=== PATIENT | female | born 1990 | race Caucasian/White ===

== ENCOUNTER → 2022-03-25 17:14 | Outpatient (BNVA) | payer OTHER, SELFPAY | PROVIDERS: Visit Provider Registered Nurse Neonatal Intensive Care | DX: Z20.2 Contact with and (suspected) exposure to infections with a predominantly sexual mode of transmission (principal) | CPT/HCPCS: 81003; 87491; 87591; 87661 ==

== ENCOUNTER 2024-10-22 19:00 | Inpatient (IN) | payer MEDICAID, SELFPAY ==
[2024-10-22] VITALS (64 sets, daily range): BP systolic 134–190; BP diastolic 71–104; PULSE 63–102; BMI 33.7
[2024-10-22 10:09] LABS: Basophils % 0.3 %; Eosinophils # 0.1 10^3/uL (0.0-0.8); Eosinophils % 0.5 %; Lymphocytes # 1.8 10^3/uL (0.8-4.8); Lymphocytes % 19.4 %; Mean Corpuscular HGB Conc 33.5 g/dL (30-55); Mean Corpuscular Hemoglobin 27.7 pg (27-33); Mean Corpuscular Volume 82.6 fl (85-98); Monocytes # 0.5 10^3/uL (0.2-0.9); Monocytes % 5.2 %; Neutrophils # 6.81 10^3/uL (1.8-7.7); Neutrophils % 73.9 %; Nucleated Red Blood Cells % 0 %; Platelet Count 228 10^3/cmm (157-399); Red Blood Count 4.84 10^6/uL (3.85-5.65); Red Cell Distribution Width 14.5 % (12.1-15.1); White Blood Count 9.22 10^3/uL (3.29-11.43)
[2024-10-22 10:24] LABS: Alanine Aminotransferase 15 U/L (0-33); Albumin Level 3.3 g/dL (3.5-5.2); Alkaline Phosphatase 673 U/L (35-105); Anion Gap 16.3 (5-19); Aspartate Amino Transferase 17 U/L (0-32); Bacteria Urine 3+ /hpf; Blood Urea Nitrogen 12 mg/dL (6-20); Calcium 8.8 mg/dL (8.5-10.5); Carbon Dioxide 19 mmol/L (22-29); Chloride 105 mmol/L (98-107); Globulin 2.7 g/dL (1.3-4.6); Glomerular Filtration Rate 113.1 mL/min (90-130); Glucose 121 mg/dL (65-115); Hyaline Casts Urine 11.16 /lpf; Osmolality Calculated 283 mOsm/kg (285-295); Potassium 4.3 mmol/L (3.5-5.1); Sodium 136 mmol/L (136-145); Total Bilirubin 0.3 mg/dL (0.15-1.2); Uric Acid 6.7 mg/dL (2.4-5.7)
[2024-10-22 10:28] LABS: Urine Creatinine 350 mg/dL (28-217)
[2024-10-22 10:29] LABS: UPRO/UCREAT Ratio 0.54 mg/mg CR; Urine Protein Random 188 mg/dL
[2024-10-22 10:39] LABS: Urine Color Dark Yellow (Yellow)
[2024-10-22 10:40] LABS: Bilirubin Urine 1+ (Negative); Blood Urine Neg (Negative); Glucose Urine UA Norm (Normal); Ketones Urine Negative (Negative); Leukocyte Esterase Urine Trace (Negative); Nitrate Urine Negative (Negative); Protein Urine 2+ (Negative); Specific Gravity, Urine 1.025 (1.005-1.030); UA Slide Review UA Slide Review Perf; Urine Appearance Slightly Cloudy (CLEAR); Urobilinogen Urine Norm (Negative); pH Urine 5 (5-7)
[2024-10-22 10:42] LABS: Add Urine Culture? Yes
[2024-10-22] MEDS: labetalol 5 mg/mL SDV 20mL 20 MG IVP (13:12)
[2024-10-22] MEDS: labetalol 5 mg/mL SDV 20mL 40 MG IVP (13:53)
[2024-10-22] MEDS: miSOPROStol 100 mcg tablet 25 MCG VAGINAL ×3 (14:06→22:32)
[2024-10-22] MEDS: labetalol 5 mg/mL SDV 20mL 80 MG IVP (18:40)
--- NOTE | 2024-10-22 19:16 | ANES.PREANE2 ---
Pre-Anesthetic Assessment Height/Weight: Height 1.78 m Weight 106.821 kg Pulse BP O2 Del Method 95 168/92 Room Air 10/22/24 18:59 10/22/24 18:59 10/22/24 12:06 Preop Diagnosis: intra-uterine labor epidural Familial anesthetic complications: none Was Beta Fanta taken within 24 hours: N/A Was Clonidine taken within 24 hours: N/A Social No alcohol and No tobacco Exam alert and oriented x 3 Airway Mallampati: Class II Dentition: full History/ROS No significant history except as noted Pulmonary None reported CV/HEM Hypertension induction for gHTN/ pre- E None reported Hepatic None reported GI None reported Metabolic None reported Musc/skel None reported Neuropsych None reported Anesthetic Plan ASA status: 2 Anesthesia: Anesthesia Evaluation and Regional (specify below) (epidural ) Medications/Allergies Home Medications ?Medication ?Instructions ?Recorded ?Confirmed ?Last Taken ?Type [id number] 1 mg 1 tab PO DAILY 10/22/24 10/22/24 10/21/24 History tablet Allergies Allergy/AdvReac Type Severity Reaction Status Date / Time Sulfa (Sulfonamide Allergy Intermediate ADR-Blurry Verified 03/31/22 17:49 Antibiotics) Vision Current Medications Generic Name Dose Route Start Last Admin Trade Name Freq PRN Reason Stop Dose Admin Labetalol HCl 20 mg 10/22/24 12:16 10/22/24 13:12 Labetalol 5 Mg/Ml Sdv 20ml IVP 20 mg PRN PRN Administration HYPERTENSION Protocol Labetalol HCl 40 mg 10/22/24 12:16 10/22/24 13:53 Labetalol 5 Mg/Ml Sdv 20ml IVP 40 mg PRN PRN Administration HYPERTENSION Protocol Labetalol HCl 80 mg 10/22/24 12:16 10/22/24 18:40 Labetalol 5 Mg/Ml Sdv 20ml IVP 80 mg PRN PRN Administration HYPERTENSION Protocol Misoprostol 25 mcg 10/22/24 13:30 10/22/24 18:11 Misoprostol 100 Mcg Tablet VAGINAL 10/22/24 21:31 25 mcg Q4H SHAI Administration PFSH Anesthesia Social History Smoking and tobacco/nicotine status: current every day tobacco/nicotine user Female Reproductive History : 1 Data Anesthesia 10/22/24 09:40 10/22/24 09:40 Short CBC 10/22/24 Range/Units 09:40 WBC 9.22 (3.29-11.43) 10^3/uL Hgb 13.40 (11.27-16.99) g/dL Hct 40.0 (36-47) % MCV 82.6 L (85-98) fl Plt Count 228 (157-399) 10^3/cmm Neut % (Auto) 73.9 % Neut # (Auto) 6.81 (1.8-7.7) 10^3/uL BMP 10/22/24 09:40 Sodium 136 Potassium 4.3 Chloride 105 Carbon Dioxide 19 L BUN 12 Creatinine 0.6 Glucose 121 H Calcium 8.8 Liver Function 10/22/24 Range/Units 09:40 Total Bilirubin 0.3 (0.15-1.2) mg/dL AST 17 (0-32) U/L ALT 15 (0-33) U/L Alkaline Phosphatase 673 H (35-105) U/L Albumin 3.3 L (3.5-5.2) g/dL Urine 10/22/24 Range/Units 09:40 Urine Color Dark yellow A (Yellow) Urine Appearance Slightly cloudy (CLEAR) Urine pH 5 (5-7) Ur Specific [place] 1.025 (1.005-1.030) Urine Protein 2+ A (Negative) Urine Glucose (UA) Norm (Normal) Urine Ketones Negative (Negative) Urine Nitrate Negative (Negative) Urine Bilirubin 1+ H (Negative) Ur Leukocyte Esterase Trace A (Negative) Urine RBC 11-20 H (0-2) /hpf Urine WBC 11-20 H (0-5) /hpf Blood Bank 10/22/24 12:47 Blood Type A Positive Rho(D) Type Rh positive Antibody Screen Negative Cardiac Studies: No Data to Display
[2024-10-22] MEDS: NIFEdipine ER (24 hr) 30 mg Tablet PO (19:36)
[2024-10-22] MEDS: magnesium sulfate premix 4 GM/100 ML PREMIX IV (20:30)
[2024-10-22] MEDS: magnesium sulfate premix 20 GM/500 ML BAG IV (20:52)
[2024-10-22] MEDS: ondansetron 2 mg/ML SDV 2 mL 4 MG IVP (23:46)
[2024-10-23] VITALS (55 sets, daily range): BP systolic 136–199; BP diastolic 64–103; PULSE 81–116; TEMP 36.8; O2SAT 98–100
[2024-10-23] MEDS: ampicillin 2,000 MG in sodium chloride 0.9% (plus) 50 ML 100 MG IV (00:27)
[2024-10-23] MEDS: labetalol 5 mg/mL SDV 20mL 40 MG IVP (00:28)
[2024-10-23] MEDS: oxytocin 30 UNIT/500 ML BAG 600 UNIT IV (01:27)
[2024-10-23] MEDS: lidocaine 2% INJ 20 mL INJECTION (01:30)
[2024-10-23] MEDS: dextrose 5%-lactated ringers 1,000 ML 125 ML IV (01:41)
--- NOTE | 2024-10-23 02:22 | P.PCNOB_ITS ---
Delivery Note: Date of delivery: October 23, 2024 Pre-delivery diagnoses: 1. 34-year-old 1 at 36 weeks an d 5 days 2. Preeclampsia Post-delivery diagnoses: Same Status post vacuum-assisted vaginal delivery Procedure: Vacuum-assisted vaginal delivery Delivering Physician: Pj Barry Estimated blood loss (mL): 150 Post Delivery Diagnoses: Preeclampsia: Qualifiers: Trimester: third trimester Qualified Code(s): O14.93 - Unspecified pre- eclampsia, third trimester Pre-Delivery Course: The patient presented to the OB department for evaluation due to having an elevated blood pressure during her routine office visit. As a part of her preeclamptic workup she was found to have an elevated protein creatinine ratio as well as multiple severe blood pressures. As result she was induced with Cytotec 25 mcg x 3. She had spontaneous rupture membranes. She had multiple episodes of elevated blood pressures. They were treated with both Procardia XL as well as labetalol. She was also placed on magnesium with a loading dose of 4 g and a maintenance dose of 2 g. Delivery: DELIVERY: The baby began having persistent decelerations. Multiple position changes were attempted. Despite that she had a deep decelerations where her heart rates were in the 70s and 60s. I was contacted and quickly came to the hospital. Upon arrival she was a +2+3 station. Babies heart tones were still down. As result I applied a Kiwi vacuum and the baby was delivered with 1 contraction. She delivered a male with a weight of 4 pounds 5 ounces with Apgars of 7, 9. The baby was delivered from the LADONNA position. The baby's mouth and nose were suctioned at the site of the perineum. The baby was then completely delivered and placed on the mother's abdomen. The cord was then clamped and cut. There was no nuchal cord. There was no meconium. The placenta and 3 vessel cord were delivered intact shortly thereafter. The perineum and vaginal vault were carefully examined. A first-degree laceration extending onto the left labia minora and majora was noted. It continued to have bleeding. As result 1% lidocaine was used to anesthetize the area. 3-0 Vicryl was then used to repair the stitch in usual fashion. Hemostasis was noted.. Both the mother and the baby were in stable condition. Post-Delivery Status: Good History History History 1 Term Miscarriages/Ectopic Living Children A&P Assessment and plan (1) 36 weeks gestation of : The patient will be continued on magnesium. Will also continue to monitor her blood pressures. We will hold off on ibuprofen until we see better control of her blood pressure. Otherwise, I am hopeful she can have routine care. (2) Preeclampsia: Qualifiers: Trimester: third trimester Qualified Code(s): O14.93 - Unspecified pre- eclampsia, third trimester (3) Vacuum-assisted vaginal delivery: PDMP PDMP Reviewed: Not Reviewed Coding Level of Care Code Acute Code for Chg Fwd Diagnoses 36 weeks gestation of Z3A.36 Pre-eclampsia in third trimester O14.93 Trimester: third trimester Vacuum-assisted vaginal delivery Z37.9
--- NOTE | 2024-10-23 07:17 | PC.NURSE ---
at approximately 0035, this RN came to bedside and performed multiple position changes along with applying oxygen at 0059. Jaleel mckeon T.Clemments, came to bedside to assist with position changes and getting PT into hands and knees. MD was called to notify him of the Pt being complete, and then called back to notify him that patent was involuntarily pushing and that baby was not recovering from the current deceleration. MD arrived to bedside applied vacuum and baby was born at 0124.
[2024-10-23] MEDS: magnesium sulfate premix 20 GM/500 ML BAG IV ×2 (07:37→17:55)
[2024-10-23] MEDS: docusate sodium 100 mg Capsule PO ×2 (08:48→17:55)
[2024-10-23] MEDS: PRENATAL VIT NO.130/IRON/FOLIC 1 EACH TABLET PO (08:48)
[2024-10-23] MEDS: acetaminophen 500 mg Tablet 1000 MG PO ×3 (09:05→21:42)
[2024-10-23 11:48] LABS: Magnesium Level (OB Only) 4.7 mg/dL (5.0-7.5)
[2024-10-23 14:21] LABS: Hematocrit 38.2 % (36-47); Mean Corpuscular HGB Conc 33.8 g/dL (30-55); Mean Corpuscular Hemoglobin 27.7 pg (27-33); Mean Platelet Volume 10.8 fL (7.4-10.4); Platelet Count 223 10^3/cmm (157-399); Red Blood Count 4.66 10^6/uL (3.85-5.65); Red Cell Distribution Width 14.6 % (12.1-15.1); White Blood Count 13.49 10^3/uL (3.29-11.43)
[2024-10-23] MEDS: lactated ringers 1,000 ML 75 ML (19:05)
[2024-10-23] MEDS: NIFEdipine ER (24 hr) 30 mg Tablet 60 MG PO (22:10)
[2024-10-24] VITALS (17 sets, daily range): BP systolic 134–177; BP diastolic 80–100; PULSE 75–95; TEMP 36.4–36.7
[2024-10-24] MEDS: PRENATAL VIT NO.130/IRON/FOLIC 1 EACH TABLET PO (08:48)
[2024-10-24] MEDS: docusate sodium 100 mg Capsule PO ×2 (08:48→17:44)
[2024-10-24] MEDS: acetaminophen 500 mg Tablet 1000 MG PO ×2 (11:29→17:44)
--- NOTE | 2024-10-24 17:08 | P.PN_ITS ---
STRAWBERRY GROWER Subjective 2 Subjective: Interval history: The patient is doing well. Her blood pressures have been improving. She has been maintained on Procardia XL 60 mg p.o. daily. She has been diuresing. Her swelling is improving. She has felt pretty good overall. Breast-feeding has been going pretty well. Labor: Station: 0 Amniotic Membrane Status: Ruptured Monitor Mode: Palpation Contraction Pattern: Irregular Status: Category II Vitals/I&O/Wt Last Vital Signs Temp 97.5 F L 10/24/24 16:02 Pulse 83 10/24/24 16:02 BP 134/100 10/24/24 16:02 Pulse Ox 100 10/23/24 01:29 O2 Del Method Room Air 10/22/24 12:06 10/24/24 10/24/24 10/24/24 06:59 14:59 22:59 Intake Total 439.167 / 939.167 Output Total 1795 / 8015 Balance -1355.833 / -7075.833 Physical Exam 2 Narrative: The patient is alert. She appears comfortable. Her heart has a regular rate and rhythm with no murmurs appreciated. Lungs are clear to auscultation bilaterally. Her fundus is firm and below the umbilicus. Urinary Catheter Management: [place]: Cath Placed During This Visit: yes, but has since been removed by the nurse Reason for Continuing Indwelling Catheter: Decision to DC Catheter Urinary Catheter Date of Insertion: 10/23/24 Urinary Catheter Time of Insertion: 02:30 Date Urinary Catheter Removed: 10/24/24 Time Urinary Catheter Discontinued: 03:30 Data 10/23/24 14:00 10/22/24 09:40 Micro: Microbiology 10/22/24 09:40 Urine Culture - Final Urine,Clean Catch A&P Assessment and plan (1) Preeclampsia: Patient symptoms appear to be improving. She was kept on magnesium for 24 hours postdelivery. She has been diuresing. Her pain is been well-controlled. Her bleeding has been within normal limits. Qualifiers: Trimester: third trimester Qualified Code(s): O14.93 - Unspecified pre- eclampsia, third trimester (2) Vacuum-assisted vaginal delivery: (3) 36 weeks gestation of : PDMP PDMP Reviewed: Not Reviewed Attestations 2 Medical Necessity Statement*: The patient will require 1-2 extra hospital days due to her preeclampsia with severe features. Coding Level of Care Code Acute Code for Chg Fwd Diagnoses Pre-eclampsia in third trimester O14.93 Trimester: third trimester Vacuum-assisted vaginal delivery Z37.9 36 weeks gestation of Z3A.36
[2024-10-24] MEDS: benzocaine-menthol 78 gm Canister 1 SPRAY TOPICAL (22:19)
[2024-10-24] MEDS: NIFEdipine ER (24 hr) 30 mg Tablet 60 MG PO (22:20)
[2024-10-24] MEDS: lanolin oint 7 gm 1 APPLIC TOPICAL (22:20)
[2024-10-25] MEDS: acetaminophen 500 mg Tablet 1000 MG PO ×2 (00:30→09:20)
[2024-10-25 04:00] VITALS: BP 134/84; PULSE 99
--- NOTE | 2024-10-25 06:00 | PC.NURSE ---
mom in nursery at this time with baby for car seat challenge test
--- NOTE | 2024-10-25 07:31 | PC.NURSE ---
while this RN was in the PTs room the PTs mother was making statements about babys are safe sleeping in carseats , wearing puffy coats in a carseat is safe along with other comments about unsafe sleep situations. This RN educated the Pts mother on safe sleep and then this RN printed out education packets and gave to the PT and her mother so reiterate what safe sleep is for baby.
[2024-10-25] MEDS: docusate sodium 100 mg Capsule PO (09:20)
[2024-10-25] MEDS: PRENATAL VIT NO.130/IRON/FOLIC 1 EACH TABLET PO (09:20)
[2024-10-25 09:24] VITALS: BP 142/85; PULSE 100
--- NOTE | 2024-10-25 17:55 | P.DS_ITS ---
Discharge Providers GIS TECHNICIAN Date of Admission: 10/22/24 19:00 Date of Discharge: 10/25/24 Attending Provider at Admission: Pj Barry MD Attending Provider at Discharge: Pj Barry MD Diagnoses at Discharge Discharge Diagnosis (1) Preeclampsia: Status: Acute Qualifiers: Trimester: third trimester Qualified Code(s): O14.93 - Unspecified pre- eclampsia, third trimester (2) Vacuum-assisted vaginal delivery: Status: Acute (3) 36 weeks gestation of : Status: Acute Reason for Visit Reason for Visit: increased bp in office Hospital Course Hospital Course The patient presented to the hospital due to presumed preeclampsia. When she arrived to the OB department she was found to have multiple severe blood pressures. She was given both labetalol and Procardia XL. She was placed on group B strep protocol. Her preeclamptic workup demonstrated that her protein creatinine ratio was also consistent with preeclampsia. She was induced using Cytotec she readily progressed to complete, and due to some bradycardia from the decision was made to use the vacuum. The baby was quickly delivered us ing the vacuum. She is maintained on magnesium for 24 hours postdelivery. Her bleeding was within normal limits. She breast-fed well. Her pain was well- controlled. She diuresed aggressively after delivery of the infant. There are no concerns. Information Peripartum Data: Infant Delivery Method: Operative Vaginal Physical Exam Narrative: The patient is alert. She appears comfortable. Her heart has a regular rate and rhythm with no murmurs appreciated. Lungs are clear to auscultation bilaterally. Her fundus is firm and below the umbilicus. 1+ edema is noted in her lower extremiti es bilaterally Urinary Catheter Management: [place]: Cath Placed During This Visit: yes, but has since been removed by the nurse Reason for Continuing Indwelling Catheter: Decision to DC Catheter Urinary Catheter Date of Insertion: 10/23/24 Urinary Catheter Time of Insertion: 02:30 Date Urinary Catheter Removed: 10/24/24 Time Urinary Catheter Discontinued: 03:30 History History History 1 Term Miscarriages/Ectopic Living Children Discharge Data Studies Completed and Pending Laboratory Results WBC 13.49 10^3/uL (3.29-11.43) H 10/23/24 14:00 RBC 4.66 10^6/uL (3.85-5.65) 10/23/24 14:00 Hgb 12.90 g/dL (11.27-16.99) 10/23/24 14:00 Hct 38.2 % (36-47) 10/23/24 14:00 MCV 82.0 fl (85-98) L 10/23/24 14:00 MCH 27.7 pg (27-33) 10/23/24 14:00 MCHC 33.8 g/dL (30-55) 10/23/24 14:00 RDW 14.6 % (12.1-15.1) 10/23/24 14:00 Plt Count 223 10^3/cmm (157-399) 10/23/24 14:00 MPV 10.8 fL (7.4-10.4) H 10/23/24 14:00 Neut % (Auto) 73.9 % 10/22/24 09:40 Lymph % (Auto) 19.4 % 10/22/24 09:40 [place] % (Auto) 5.2 % 10/22/24 09:40 Eos % (Auto) 0.5 % 10/22/24 09:40 Baso % (Auto) 0.3 % 10/22/24 09:40 Neut # (Auto) 6.81 10^3/uL (1.8-7.7) 10/22/24 09:40 Lymph # (Auto) 1.8 10^3/uL (0.8-4.8) 10/22/24 09:40 [place] # (Auto) 0.5 10^3/uL (0.2-0.9) 10/22/24 09:40 Eos # (Auto) 0.1 10^3/uL (0.0-0.8) 10/22/24 09:40 Baso # (Auto) 0.0 10^3/uL (0.0-0.1) 10/22/24 09:40 Nucleated RBC % (auto) 0 % 10/22/24 09:40 Nucleated RBCs # 0.0 /100WBC 10/22/24 09:40 Sodium 136 mmol/L (136-145) 10/22/24 09:40 Potassium 4.3 mmol/L (3.5-5.1) 10/22/24 09:40 Chloride 105 mmol/L (98-107) 10/22/24 09:40 Carbon Dioxide 19 mmol/L (22-29) L 10/22/24 09:40 Anion Gap 16.3 (5-19) 10/22/24 09:40 BUN 12 mg/dL (6-20) 10/22/24 09:40 Creatinine 0.6 mg/dL (0.5-0.9) 10/22/24 09:40 GFR Calculation 113.1 mL/min (90-130) 10/22/24 09:40 Glucose 121 mg/dL (65-115) H 10/22/24 09:40 Calculated Osmolality 283 mOsm/kg (285-295) L 10/22/24 09:40 Uric Acid 6.7 mg/dL (2.4-5.7) H 10/22/24 09:40 Calcium 8.8 mg/dL (8.5-10.5) 10/22/24 09:40 Magnesium 4.7 mg/dL (5.0-7.5) L* 10/23/24 10:45 Magnesium Cancelled 10/23/24 10:45 Total Bilirubin 0.3 mg/dL (0.15-1.2) 10/22/24 09:40 AST 17 U/L (0-32) 10/22/24 09:40 ALT 15 U/L (0-33) 10/22/24 09:40 Alkaline Phosphatase 673 U/L (35-105) H 10/22/24 09:40 Total Protein 6.0 g/dL (6.6-8.7) L 10/22/24 09:40 Albumin 3.3 g/dL (3.5-5.2) L 10/22/24 09:40 Globulin 2.7 g/dL (1.3-4.6) 10/22/24 09:40 Urine Color Dark yellow (Yellow) A 10/22/24 09:40 Urine Appearance Slightly cloudy (CLEAR) 10/22/24 09:40 Urine pH 5 (5-7) 10/22/24 09:40 Ur Specific [place] 1.025 (1.005-1.030) 10/22/24 09:40 Urine Protein 2+ (Negative) A 10/22/24 09:40 Urine Glucose (UA) Norm (Normal) 10/22/24 09:40 Urine Ketones Negative (Negative) 10/22/24 09:40 Urine Blood Neg (Negative) 10/22/24 09:40 Urine Nitrate Negative (Negative) 10/22/24 09:40 Urine Bilirubin 1+ (Negative) H 10/22/24 09:40 Urine Urobilinogen Norm mg/dL (Negative) 10/22/24 09:40 Ur Leukocyte Esterase Trace (Negative) A 10/22/24 09:40 Urine RBC 11-20 /hpf (0-2) H 10/22/24 09:40 Urine WBC 11-20 /hpf (0-5) H 10/22/24 09:40 Ur Squamous Epith Cells 11-20 /hpf (0-5) H 10/22/24 09:40 Amorphous Sediment Not Reportable 10/22/24 09:40 Urine Bacteria 3+ /hpf (NONE) H 10/22/24 09:40 Hyaline Casts 11.16 /lpf 10/22/24 09:40 U Random Total Protein 188 mg/dL 10/22/24 09:40 Urine Creatinine 350 mg/dL (28-217) H 10/22/24 09:40 Protein/Creatinin Ratio 0.54 mg/mg CR 10/22/24 09:40 Blood Type A Positive 10/22/24 12:47 Rho(D) Type Rh positive 10/22/24 12:47 Antibody Screen Negative 10/22/24 12:47 Vitals Last Vital Signs Temp 98.0 F 10/24/24 22:00 Pulse 100 10/25/24 09:24 BP 142/85 10/25/24 09:24 Pulse Ox 100 10/23/24 01:29 O2 Del Method Room Air 10/22/24 12:06 Results Labs OB ([facility]): Blood Type A Positive 10/22/24 Antibody Screen Negative 10/22/24 Hct 38.2 % (36-47) 10/23/24 Hgb 12.90 g/dL (11.27-16.99) 10/23/24 Rho(D) Type Rh positive 10/22/24 Plt Count 223 10^3/cmm (157-399) 10/23/24 Uric Acid 6.7 mg/dL (2.4-5.7) H 10/22/24 Micro Urine Specimen 10/22/24 Discharge Plan Discharge Patient Disposition: Home Condition: Stable Prescriptions: New nifedipine 30 mg Tablet Extended Release 24hr 60 mg PO DAILY Qty: 30 1RF acetaminophen 500 mg Tablet 1,000 mg PO Q8H PRN (Reason: Mild Pain Or Increase Temp) Qty: 45 0RF Continued ziqfdzoe-pql-Kg-FA 1 mg Tablet 1 tab PO DAILY Discharge Orders: Discharge Order (Routine); Ordered 10/25/24 Ordered By: Pj Barry Referrals: Pj Barry MD [Physician] - 12/04/24 11:00 am Discharge Diet: Usual diet Discharge Activity: Limit activity as instructed Patient Instructions: Depression (DC), Opioid Safety (DC), Preeclampsia and Eclampsia After Delivery (GEN), Hemorrhage (DC), OB Discharge Report, OB Food/Drug Interaction Guide, OB Care at Home, Opioid Safety, OB Vaginal Deliveries, Abnormal Bleeding Discharge Attestations GIS TECHNICIAN Time Spent in Discharge Care*: less than 30 min Coding Level of Care Code Acute Code for Chg Fwd Diagnoses Pre-eclampsia in third trimester O14.93 Trimester: third trimester Vacuum-assisted vaginal delivery Z37.9 36 weeks gestation of Z3A.36
[2024-10-25 18:27] VITALS: BP 181/92; PULSE 107
[2024-10-25 18:44] VITALS: BP 141/87; PULSE 100
[2024-10-25 19:15] VITALS: BP 141/87; PULSE 100; RESP 16; TEMP 36.7; O2SAT 100
--- NOTE | 2024-11-03 11:24 | P.HPUD_ITS ---
Labor & Delivery H&P Update Date of Procedure: October 22, 2024 Date H&P Performed: 10/22/24 Changes to previous documentation: None, since the patient was sent to the hospital from eye office Admission Diagnosis: 34-year-old female at 36 weeks and 5 days . Preeclampsia Preop diagnosis: intra-uterine Planned procedure: Induction due to preeclampsia Other information: The patient is a otherwise healthy 34-year-old female who had had an unremarkable . Arriving at her routine visit, she was noted to have elevated blood pressures. They are persistently elevated, so she was brought to the obstetric unit where she was found to have consistently elevated blood pressures again. Her protein creatinine ratio was also elevated. The decision was made to proceed with an induction. Her labs are otherwise relatively unremarkable. Her blood type was a positive part to her antibody screen was negative. True passed her glucose screen. She is rubella immune. Her GBS status was unknown. Related Problem List Diagnoses (1) Preeclampsia: (2) 36 weeks gestation of : A&P Assessment and plan (1) Preeclampsia: We will monitor her preeclampsia for severe features and consider magnesium as needed. Otherwise we will continue with the routine induction. Status: Resolved Qualifiers: Trimester: third trimester Qualified Code(s): O14.93 - Unspecified pre- eclampsia, third trimester (2) 36 weeks gestation of : Status: Resolved PDMP PDMP Reviewed: Not Reviewed
== END 2024-10-25 19:21 | disposition home or self-care (01) | DRG 805 ==
LOC: OPOB 10-23 02:34 → OBGYN 10-23 02:34
PROVIDERS: Admitting Provider Family Medicine; Visit Provider Family Medicine
DX: O14.93 Unspecified pre-eclampsia, third trimester (principal); O60.14X0 Preterm labor third trimester with preterm delivery third trimester, not applicable or unspecified; Z37.0 Single live birth; Z3A.36 36 weeks gestation of pregnancy; Z37.9 Outcome of delivery, unspecified; O14.14 Severe pre-eclampsia complicating childbirth; O76 Abnormality in fetal heart rate and rhythm complicating labor and delivery; O70.0 First degree perineal laceration during delivery
CPT/HCPCS: 36415; 51702; 59025; 59409; 80053; 81001; 82570; 83735; 84156; 84550; 85025; 85027; 86850; 86900; 87086; 96374; 96376; 99211; J0290; J2405; J2590; J3475; J3490; J7120; J7121; J9999